=== PATIENT | female | born 1990 | race Caucasian/White ===

== ENCOUNTER 2017-08-21 13:03 | Observation (INO) | payer OTHER ==
[~2017-08-21 13:03] MED LIST: LIDOCAINE 1% PF 2 ML VIAL. ID; MORPHINE SULFATE 4 MG/ML DISP.SYRIN. IV; ONDANSETRON PF 4 MG/2 ML VIAL. IV; fentaNYL PF VIAL 100 MCG/2 ML VIAL IV
[2017-08-21] MEDS ORDERED: OXYMETAZOLINE 0.05% NASAL SPRAY 30ML BOTTLE. NS (13:21)
[2017-08-21] MEDS: IV RINGERS,LACTATED 1000ML 1,000 ML IV ×2 (13:41→16:26)
[2017-08-21 13:42] LABS: NEG OBC UR NEG; POS OBC UR POS; U PREG PATIENT NEGATIVE (NEG)
[2017-08-21] MEDS: SCOPOLAMINE 1.5MG PATCH. TD (13:49)
[2017-08-21] MEDS ORDERED: SEVOFLURANE 31 TO 60 MINUTES. IH (14:02)
[2017-08-21] MEDS ORDERED: SUCCINYLCHOLINE 200 MG/10 ML VIAL. (14:03)
[2017-08-21] MEDS ORDERED: MIDAZOLAM HCL/PF 2 MG/2 ML VIAL. (14:03)
[2017-08-21] MEDS ORDERED: fentaNYL PF VIAL 100 MCG/2 ML VIAL (14:03)
[2017-08-21] MEDS ORDERED: LIDOCAINE 2% PF Vial for OR 5 ML VIAL. (14:03)
[2017-08-21] MEDS ORDERED: DEXAMETHASONE SOD PHOS 20 MG/5 ML VIAL. (14:04)
[2017-08-21] MEDS ORDERED: ONDANSETRON PF 4 MG/2 ML VIAL. (14:04)
[2017-08-21] MEDS ORDERED: PROPOFOL 20 ML IV (14:04)
[2017-08-21] MEDS ORDERED: ROCURONIUM 50 MG/5 ML VIAL. (15:12)
[2017-08-21] MEDS: ceFAZolin SODIUM 3 GM in IV DEXTROSE 5% 100 ML IV (15:12)
[2017-08-21] MEDS ORDERED: ESMOLOL 100 MG/10 ML VIAL. IV (15:22)
[2017-08-21] MEDS ORDERED: REMIFENTANIL 1 MG VIAL. IV (15:26)
[2017-08-21] MEDS: OXYMETAZOLINE 0.05% NASAL SPRAY 30ML BOTTLE. NS (15:32)
[2017-08-21] MEDS ORDERED: DESFLURANE 16 TO 30 MINUTES. IH (15:39)
[2017-08-21] MEDS ORDERED: GLYCOPYRROLATE 1 MG/5 ML VIAL. (15:48)
[2017-08-21] MEDS: PROCHLORPERAZINE 10 MG/2 ML VIAL. IV ×2 (16:26→16:56)
[2017-08-21] MEDS: fentaNYL PF VIAL 100 MCG/2 ML VIAL IV ×2 (16:27→16:57)
[2017-08-21] MEDS ORDERED: MORPHINE SULFATE 4 MG/ML DISP.SYRIN. IV (16:45)
[2017-08-21] MEDS ORDERED: ONDANSETRON PF 4 MG/2 ML VIAL. IV (16:45)
[2017-08-21] MEDS ORDERED: DEXTROSE 50% 25 GM / 50ML DISP.SYRIN. IV (16:45)
[2017-08-21] MEDS: IV 1/2 NORMAL SALINE 1,000 ML IV (17:54)
[2017-08-21] MEDS: MORPHINE SULFATE 4 MG/ML DISP.SYRIN. IV (17:54)
[2017-08-21] MEDS: ACETAMINOPHEN 650 MG/20.3 ML SOLUTION. PO ×2 (19:42→23:47)
[2017-08-21] MEDS: oxyCODONE ORAL SOLUTION 5 MG/5 ML SOLUTION PO (21:30)
[2017-08-21] MEDS: DEXAMETHASONE SOD PHOS 4 MG/ML VIAL IV (21:33)
[2017-08-22] MEDS: IV 1/2 NORMAL SALINE 1,000 ML IV (04:19)
[2017-08-22] MEDS: ACETAMINOPHEN 650 MG/20.3 ML SOLUTION. PO ×3 (04:19→12:00)
[2017-08-22] MEDS: LIDO:MAALOX:BENADRYL 1:1:1 180 ML BOTTLE. PO (04:20)
[2017-08-22] MEDS: DEXAMETHASONE SOD PHOS 4 MG/ML VIAL IV (05:34)
[2017-08-22] MEDS: SENNOSIDES/DOCUSATE 8.6/50MG TABLET. PO (08:01)
[2017-08-22] MEDS: oxyCODONE ORAL SOLUTION 5 MG/5 ML SOLUTION PO (12:41)
== END 2017-08-22 14:14 | disposition home or self-care (01) ==
LOC: SURG 13:03 → 6 SOUTH 17:00
DX: J35.1 Hypertrophy of tonsils (principal); J03.91 Acute recurrent tonsillitis, unspecified; F10.10 Alcohol abuse, uncomplicated
CPT/HCPCS: 42826; 81025; 96374; 96375; 96376; A7015; G0378; G0379; J0330; J0780; J1100; J2250; J2270; J2405; J2704; J3010; J3490; J7120